=== PATIENT | male | born 1990 | race Two or more races ===

== ENCOUNTER 2018-03-29 12:09 | Emergency (ER) | payer MEDICARE ==
[~2018-03-29] VITALS: Ht 160 cm; Wt 67.1 kg
--- NOTE | 2018-03-29 12:20 | NUR ---
URINE SPECIMEN CUP GIVEN BUT PT UNABLE TO GIVE URINE SAMPLE.
--- NOTE | 2018-03-29 12:25 | NUR ---
PT BIB SELF C/O ABDOMINAL PAIN 10/, PT IS AAOX4, NOT IN RESPIRATORY DISTRESS, V/S STABLE, KEPT RESTED AND COMFORTABLE.
--- NOTE | 2018-03-29 12:35 | NUR ---
LABS DRAWNED AND SENT TO LAB.
--- NOTE | 2018-03-29 12:35 | NUR ---
DR. DICK AT BEDSIDE FOR EVAL.
[2018-03-29] MEDS ORDERED: METOCLOPRAMIDE HCL 10 MG/2 ML VIAL ONE (12:44)
[2018-03-29] MEDS ORDERED: FAMOTIDINE/PF INJ 20 MG/2 ML VIAL IV ONE ×2 (12:45→13:00)
[2018-03-29 12:52] LABS: BASOPHILS % (AUTO) 0.1 % (0.0-2.0); EOSINOPHILS % (AUTO) 0.1 % (0.0-6.0); HEMATOCRIT 53 % (39-51); HEMOGLOBIN 17.5 g/dL (13.5-17.5); LYMPHOCYTES % (AUTO) 12.6 % (20.0-44.0); MEAN CORPUSCULAR HGB CONC 33 g/dl (31.0-36.0); MEAN CORPUSCULAR VOLUME 92 fL (80-96); MONOCYTES # (AUTO) 0.6 /CMM (0.1-1.30); MONOCYTES % (AUTO) 7.9 % (2.0-12.0); NEUTROPHILS # (AUTO) 6.4 /CMM (1.8-8.9); NEUTROPHILS % (AUTO) 79.3 % (43.0-81.0); PLATELET COUNT (AUTO) 369 /CMM (150-450); RED BLOOD CELL COUNT(AUTO) 5.72 MIL/uL (4.5-6.0)
[2018-03-29 12:59] LABS: CALCIUM, SERUM 9.3 mg/dL (8.5-10.1); POTASSIUM 4.2 mmol/L (3.5-5.1)
[2018-03-29] MEDS ORDERED: METOCLOPRAMIDE HCL 10 MG/2 ML VIAL IV ONE (13:00)
[2018-03-29] MEDS ORDERED: IV NS 0.9% 1,000 ML BAG IV ONE (13:00)
[2018-03-29 13:06] LABS: ALBUMIN 4.3 g/dL (3.4-5.0); BILIRUBIN,DIRECT 0.2 mg/dL (0.0-0.2); BILIRUBIN,TOTAL 0.9 mg/dL (0.2-1.0); TOTAL PROTEIN, SERUM 8.7 g/dL (6.4-8.2)
[2018-03-29 13:29] VITALS: BP 109/64
--- NOTE | 2018-03-29 13:29 | NUR ---
IV removed. Catheter intact and site benign. Pressure and 4x4 applied to site. No bleeding noted. Patient discharged to home in stable condition. Written and verbal after care instructions given. Patient verbalizes understanding of instruction.
== END 2018-03-29 13:30 | disposition home or self-care (01) ==
LOC: ER 12:12
DX: R11.2 Nausea with vomiting, unspecified (principal); R10.84 Generalized abdominal pain; F17.200 Nicotine dependence, unspecified, uncomplicated
CPT/HCPCS: 36415; 71045; 80048; 80076; 83690; 85025; 96361; 96374; 96375; 99284; A4606; J2765; J3490; J7030; Z7610

== ENCOUNTER 2021-04-07 20:27 | Emergency (ER) | payer SELFPAY ==
[~2021-04-07] VITALS: Ht 170.2 cm; Wt 83.9 kg
[2021-04-07 20:30] VITALS: BP 144/102
[2021-04-07] MEDS ORDERED: DEXAMETHASONE SOD PHOSPHATE 4 MG/ML VIAL IM ONE (21:30)
[2021-04-07] MEDS ORDERED: AMOXICILLIN TRIHYDRATE 500 MG CAPSULE PO ONE (21:30)
[2021-04-07] MEDS ORDERED: KETOROLAC TROMETHAMINE INJ 60 MG/2 ML VIAL IM ONE ×2 (21:30→21:49)
[2021-04-07] MEDS ORDERED: IBUP-1955 PO (21:35)
[2021-04-07] MEDS ORDERED: AMOX500C2 PO (21:35)
[2021-04-07] MEDS ORDERED: AMOXICILLIN TRIHYDRATE 250 MG CAPSULE ONE (21:49)
[2021-04-07] MEDS ORDERED: DEXAMETHASONE SOD PHOSPHATE 10 MG/ML VIAL ONE (21:49)
--- NOTE | 2021-04-07 21:50 | NUR ---
STREP TEST SENT TO LAB
--- NOTE | 2021-04-07 21:59 | NUR ---
Patient discharged to home in stable condition. Written and verbal after care instructions given. Patient verbalizes understanding of instruction. PT ambulatory with a steady gait
== END 2021-04-07 21:59 | disposition home or self-care (01) ==
LOC: ER 20:34
DX: J03.90 Acute tonsillitis, unspecified (principal)
CPT/HCPCS: 87880; 96372 ×2; 99284; J1100; J1885; 86403-TC